=== PATIENT | female | born 1965 | race Caucasian/White ===

== ENCOUNTER → 2018-02-02 | Emergency (ER) | payer OTHER ==
--- NOTE | 2018-02-02 16:09 | EDM.PDOC ---
ED HPI GENERAL MEDICAL PROBLEM - General Chief Complaint: General Stated Complaint: CLEARANCE Time Seen by Provider: 02/02/18 15:42 Source of Information: Reports: Patient History Limitations: Reports: No Limitations - History of Present Illness INITIAL COMMENTS - FREE TEXT/NARRATIVE: HISTORY AND PHYSICAL: History of present illness: Patient is a 52-year-old female who presents to the emergency room with law enforcement for medical clearance. They would like her evaluated as she is under custody of law enforcement for drug paraphernalia possession. Patient does have a history of schizophrenia and methamphetamine use. Patient currently has no systemic complaints and offers no concerns or questions at this time. Reports she has not used meth in 3 days. She does take medications for her schizophrenia and has this will manage. Review of systems: As per history of present illness and below otherwise all systems reviewed and negative. Past medical history: As per history of present illness and as reviewed below otherwise noncontributory. Surgical history: As per history of present illness and as reviewed below otherwise noncontributory. Social history: No reported history of drug or alcohol abuse. Family history: As per history of present illness and as reviewed below otherwise noncontributory. Physical exam: General: Well developed and well-nourished 52-year-old female. Alert and oriented. Nontoxic appearing and in no acute distress. HEENT: Atraumatic, normocephalic, pupils equal and reactive bilaterally, negative for conjunctival pallor or scleral icterus, mucous membranes moist, throat clear, neck supple, nontender, trachea midline. No drooling or trismus noted. No meningeal signs Lungs: Clear to auscultation, breath sounds equal bilaterally, chest nontender. Heart: S1S2, regular rate and rhythm without overt murmur Abdomen: Soft, nondistended, nontender. Negative for masses or hepatosplenomegaly. Negative for costovertebral tenderness. Pelvis: Stable nontender. Genitourinary: Deferred. Rectal: Deferred. Skin: Intact, warm, dry. No lesions or rashes noted. Extremities: Atraumatic, moves all extremities per self without difficulty or deficits, negative for cords or calf pain. Neurovascular unremarkable. Neuro: Awake, alert, oriented. Cranial nerves II through XII unremarkable. Cerebellum unremarkable. Motor and sensory unremarkable throughout. Exam nonfocal. Notes: Patient was physically assessed by myself. Vital signs were reviewed. Patient offers no concerns or complaints and does not want any testing done at this time. Bedside glucose was 103. Diagnostics: Glucose Therapeutics: [] Impression Screening for medical clearance Plan: 1. Please take your prescribed medications for your mental health issues as directed. 2. Follow up with her primary caregiver in the next 1-2 days. Return to the ED as needed and as discussed. Definitive disposition and diagnosis as appropriate pending reevaluation and review of above. - Related Data Allergies Allergy/AdvReac Type Severity Reaction Status Date / Time divalproex sodium Allergy Hallucinati Verified 02/02/18 15:52 [From Depakote] ons risperidone [From Risperdal] Allergy Hallucinati Verified 02/02/18 15:52 ons Home Meds: Home Meds FLUoxetine HCl [Prozac] 60 mg PO DAILY 02/02/18 [History] [place] Carbonate 300 mg PO DAILY 02/02/18 [History] QUEtiapine Fumarate [Seroquel] 400 mg PO DAILY 02/02/18 [History] lamoTRIgine 300 mg PO DAILY 02/02/18 [History] ED ROS GENERAL - Review of Systems Review Of Systems: ROS reveals no pertinent complaints other than HPI. ED EXAM, GENERAL - Physical Exam Exam: See Below (See dictation) Course - Vital Signs Last Recorded V/S: Last Vital Signs Temp 97.8 F 02/02/18 16:10 Pulse 114 H 02/02/18 16:10 Resp 24 H 02/02/18 16:10 BP 153/77 H 02/02/18 16:10 Pulse Ox 98 02/02/18 16:10 - Orders/Labs/Meds Labs: Laboratory Tests 02/02/18 Range/Units 16:02 POC Glucose 104 (60-110) mg/dL Departure - Departure Time of Disposition: 16:09 Disposition: Home, Self-Care 01 Clinical Impression: Medical clearance for incarceration - Discharge Information Instructions: Medical Screening Exam Referrals: PCP,Unknown [Primary Care Provider] - Forms: ED Department Discharge Additional Instructions: The following information is given to patients seen in the emergency department who are being discharged to home. This information is to outline your options for follow-up care. We provide all patients seen in our emergency department with a follow-up referral. The need for follow-up, as well as the timing and circumstances, are variable depending upon the specifics of your emergency department visit. If you don't have a primary care physician on staff, we will provide you with a referral. We always advise you to contact your personal physician following an emergency department visit to inform them of the circumstance of the visit and for follow-up with them and/or the need for any referrals to a consulting specialist. The emergency department will also refer you to a specialist when appropriate. This referral assures that you have the opportunity for follow-up care with a specialist. All of these measure are taken in an effort to provide you with optimal care, which includes your follow-up. Under all circumstances we always encourage you to contact your private physician who remains a resource for coordinating your care. When calling for follow-up care, please make the office aware that this follow-up is from your recent emergency room visit. If for any reason you are refused follow-up, please contact the [facility] Emergency Department at and asked to speak to the emergency department charge nurse. [facility] [address] [place] [phone] 1. Please take your prescribed medications for your mental health issues as directed. 2. Follow up with her primary caregiver in the next 1-2 days. Return to the ED as needed and as discussed.
[2018-02-02 16:12] VITALS: BP 153/77
== END | disposition home or self-care (01) ==
LOC: MW.ED 15:35
DX: Z02.89 Encounter for other administrative examinations (principal); Z88.8 Allergy status to other drugs, medicaments and biological substances; Z79.899 Other long term (current) drug therapy
CPT/HCPCS: 82962; 99283